=== PATIENT | female | born 1970 | race Caucasian/White ===

== ENCOUNTER → 2024-03-06 | Outpatient (CLI) | payer OTHER ==
[2024-03-06 14:57] LABS: BASOPHIL % 0.2 % (0.0-0.2); EOSINOPHIL % 0.8 % (0.0-5.0); HEMATOCRIT(ML) 43.2 % (36.0-46.0); HEMOGLOBIN 14.1 g/dL (12.0-15.0); LYMPHOCYTES # 2.39 10^3/uL1 (1.0-4.8); LYMPHOCYTES % 45.1 % (24.0-44.0); MEAN CORP HGB 31.8 pg (26-34); MEAN CORP HGB CONCENTRATION 32.6 g/dL (33-36.5); MEAN CORP VOLUME 97.3 fL (78-100); MONOCYTES # 0.5 10^3/uL (0.3-0.8); MONOCYTES % 9.6 % (5.0-12.0); NEUTROPHIL # 2.4 10^3/uL (1.8-7.7); NEUTROPHILS % 44.3 % (41.0-85.0); PLATELET COUNT 234 10^3/uL (150-400); RED BLOOD CELL 4.44 10^6/uL (4.00-5.20); RED CELL DISTRIBUTION WIDTH 14.9 % (11.5-14.5); WHITE BLOOD CELL 5.3 10^3/uL (4.5-11.0)
[2024-03-06 15:01] LABS: +ADD MANUAL DIFF(NO CHRG) NO
[2024-03-06 15:06] LABS: ALBUMIN(ML) 3.6 g/dL (3.4-5.0); ALBUMIN/GLOBULIN RATIO 0.923; ANION GAP 11.6; CALCIUM 9.2 mg/dL (8.4-10.5); CARBON DIOXIDE 28.4 mmol/L (20.0-32); CREATININE SERUM 0.65 mg/dL (0.59-1.40); EST GFR, NON-AA 94.6 (>/=60)
== END | disposition home or self-care (01) ==
LOC: NPLAB 14:34
DX: D64.9 Anemia, unspecified (principal); Z79.2 Long term (current) use of antibiotics
CPT/HCPCS: 36415; 80053; 85025

== ENCOUNTER → 2024-03-13 | Outpatient (CLI) | payer OTHER ==
[2024-03-13 12:21] LABS: BASOPHIL % 0.2 % (0.0-0.2); EOSINOPHIL # 0.1 10^3/uL (0.0-0.2); EOSINOPHIL % 2.2 % (0.0-5.0); HEMATOCRIT(ML) 43.1 % (36.0-46.0); HEMOGLOBIN 14.1 g/dL (12.0-15.0); LYMPHOCYTES # 1.87 10^3/uL1 (1.0-4.8); LYMPHOCYTES % 33.8 % (24.0-44.0); MEAN CORP HGB 31.8 pg (26-34); MEAN CORP HGB CONCENTRATION 32.7 g/dL (33-36.5); MEAN CORP VOLUME 97.1 fL (78-100); MONOCYTES # 0.5 10^3/uL (0.3-0.8); MONOCYTES % 8.7 % (5.0-12.0); NEUTROPHIL # 3.1 10^3/uL (1.8-7.7); NEUTROPHILS % 54.9 % (41.0-85.0); PLATELET COUNT 203 10^3/uL (150-400); RED BLOOD CELL 4.44 10^6/uL (4.00-5.20); RED CELL DISTRIBUTION WIDTH 14.6 % (11.5-14.5); WHITE BLOOD CELL 5.5 10^3/uL (4.5-11.0)
[2024-03-13 12:22] LABS: +ADD MANUAL DIFF(NO CHRG) NO
[2024-03-13 12:41] LABS: ALBUMIN(ML) 3.5 g/dL (3.4-5.0); ALBUMIN/GLOBULIN RATIO 0.972; ANION GAP 15.8; BUN/CREATININE RATIO 20.31 (10.0-20.0); CALCIUM 8.9 mg/dL (8.4-10.5); CARBON DIOXIDE 25.1 mmol/L (20.0-32); CREATININE SERUM 0.64 mg/dL (0.59-1.40); EST GFR, NON-AA 96.3 (>/=60); POTASSIUM 3.9 mmol/L (3.6-5.2)
== END | disposition home or self-care (01) ==
LOC: NPLAB 11:51
PROVIDERS: ATTEND Student in an Organized Health Care Education/Training Program
DX: D64.9 Anemia, unspecified (principal); Z79.2 Long term (current) use of antibiotics
CPT/HCPCS: 36415; 80053; 85025

== ENCOUNTER → 2024-03-21 | Outpatient (CLI) | payer OTHER ==
[2024-03-21 15:58] LABS: BASOPHIL % 0.3 % (0.0-0.2); EOSINOPHIL # 0.3 10^3/uL (0.0-0.2); EOSINOPHIL % 4.4 % (0.0-5.0); HEMOGLOBIN 13.8 g/dL (12.0-15.0); LYMPHOCYTES # 2.22 10^3/uL1 (1.0-4.8); LYMPHOCYTES % 37.4 % (24.0-44.0); MEAN CORP HGB 31.7 pg (26-34); MEAN CORP HGB CONCENTRATION 32.9 g/dL (33-36.5); MEAN CORP VOLUME 96.3 fL (78-100); MONOCYTES # 0.5 10^3/uL (0.3-0.8); MONOCYTES % 8.1 % (5.0-12.0); NEUTROPHILS % 49.6 % (41.0-85.0); PLATELET COUNT 225 10^3/uL (150-400); RED BLOOD CELL 4.36 10^6/uL (4.00-5.20); RED CELL DISTRIBUTION WIDTH 14.4 % (11.5-14.5); WHITE BLOOD CELL 5.9 10^3/uL (4.5-11.0)
[2024-03-21 15:59] LABS: +ADD MANUAL DIFF(NO CHRG) NO
[2024-03-21 16:19] LABS: ALBUMIN(ML) 3.4 g/dL (3.4-5.0); ALBUMIN/GLOBULIN RATIO 1.03; ANION GAP 10.7; BUN/CREATININE RATIO 19.48 (10.0-20.0); CALCIUM 8.9 mg/dL (8.4-10.5); CARBON DIOXIDE 28.9 mmol/L (20.0-32); CREATININE SERUM 0.77 mg/dL (0.59-1.40); EST GFR, NON-AA 77.8 (>/=60); POTASSIUM 3.6 mmol/L (3.6-5.2)
== END | disposition home or self-care (01) ==
LOC: NPLAB 15:39
PROVIDERS: ATTEND Student in an Organized Health Care Education/Training Program
DX: D64.9 Anemia, unspecified (principal); Z79.2 Long term (current) use of antibiotics
CPT/HCPCS: 36415; 80053; 85025